=== PATIENT | male | born 1940 | race Caucasian/White ===

== ENCOUNTER 2016-12-01 16:42 | Inpatient (IN) ==
[2016-12-01] MEDS ORDERED: ACETAMINOPHEN 325 MG TABLET PO PRN (18:25)
[2016-12-01] MEDS ORDERED: LACTULOSE 20 GM/30 ML UDCUP PO PRN (18:25)
[2016-12-01] MEDS ORDERED: ALUMINUM/MAGNES/SIMETH MAX STR 30 ML UDCUP PO PRN (18:25)
[2016-12-01] MEDS ORDERED: MYLANTA/LIDO VISC 2:1 300 ML BOTTLE SWISH/SPIT PRN (18:25)
[2016-12-01] MEDS ORDERED: traMADol 50 MG TABLET PO PRN (18:25)
[2016-12-01] MEDS ORDERED: guaiFENesin 200 MG/10 ML UDCUP PO PRN (18:25)
[2016-12-01] MEDS ORDERED: chlorproMAZINE INJ 25 MG in SODIUM CHLORIDE 0.9% 100 ML IV PRN (18:25)
[2016-12-01] MEDS ORDERED: MAGNESIUM HYDROXIDE SUSP 30 ML UDCUP PO PRN (18:25)
[2016-12-01] MEDS ORDERED: diphenhydrAMINE CAP 25 MG CAPSULE PO PRN (18:25)
[2016-12-01] MEDS ORDERED: ALPRAZolam 0.25 MG TABLET PO PRN (18:25)
[2016-12-01] MEDS ORDERED: chlorproMAZINE 25 MG TABLET PO PRN (18:25)
[2016-12-01] MEDS ORDERED: MYLANTA/LIDO VISC 2:1 300 ML BOTTLE SWISH/SWAL PRN (18:25)
[2016-12-01] MEDS ORDERED: BENZTROPINE 2 MG/2 ML AMP IV PRN (18:25)
[2016-12-01] MEDS ORDERED: chlorproMAZINE INJ 50 MG in SODIUM CHLORIDE 0.9% 100 ML IV PRN (18:25)
[2016-12-01] MEDS ORDERED: LOPERAMIDE 2 MG CAPSULE PO PRN ×2 (18:25)
[2016-12-01 18:42] LABS: Basophils % 0.4 % (0.0-0.8); Eosinophils % 0.7 % (0.00-10.9); Hematocrit 35.5 VOL% (42.0-52.0); Hemoglobin 12.1 GM/DL (14.0-18.0); Immature Granulocytes % 0.4 %; Immature Granulocytes Absolute 0.02 #; Lymphocytes # 0.1 10*3/uL (1.4-4.0); Mean Corpuscular HGB Conc 34.1 GM/DL (32-36); Mean Corpuscular Hemoglobin 30 PG (27-34); Mean Platelet Volume 11.5 FL (9.6-12.0); Monocytes # 0.5 10*3/uL (0.11-0.8); Monocytes % 11.7 % (1.7-12.7); Neutrophils # 3.8 10*3/uL (1.4-7.4); Neutrophils % 84.8 % (38.7-73.9); Platelet Count 115 T/CUMM (130-400); Red Blood Count 3.99 MC/CUMM (3.8-5.5); Red Cell Distribution Width 16.2 % (9.3-17.3); White Blood Count 4.5 T/CUMM (4-12)
[2016-12-01] MEDS ORDERED: IBUPROFEN 800 MG TABLET PO ONE (18:42)
[2016-12-01] MEDS: SODIUM CHLORIDE 0.9% 1,000 ML IV SCH (18:42)
[2016-12-01] MEDS: ONDANSETRON 4 MG/2 ML VIAL IV PRN (19:03)
[2016-12-01 19:07] LABS: Albumin 3.2 G/DL (3.4-5.0); Bilirubin,Total 0.7 MG/DL (0.2-1.0); Magnesium 2.2 MG/DL (1.8-2.4); Potassium 3.7 MMOL/L (3.5-5.1); Total Protein 6.7 G/DL (6.4-8.3); Uric Acid 4.7 MG/DL (3.5-7.2)
[2016-12-01] MEDS ORDERED: LEVOFLOXACIN INJ 500 MG in PREMIX 1 EACH IV ONE (19:30)
[2016-12-01 20:04] LABS: Band Neutrophils 3 % (0-10); Eosinophils 2 % (0-10); Lymphocytes 4 % (20-55); Metamyelocytes 1 %; Segmented Neutrophils 88 % (50-85); Total Cells Counted 100
[2016-12-01 20:05] LABS: Platelet Estimate Adequate; Polychromasia Few
[2016-12-01] MEDS ORDERED: VANCOMYCIN INJ 1,000 MG in SODIUM CHLORIDE 0.9% 250 ML IV ONE (21:00)
[2016-12-01] MEDS: PROMETHAZINE INJ 25 MG in SODIUM CHLORIDE 0.9% 50 ML IV PRN (21:32)
[2016-12-02 05:30] LABS: Apearance,Urine Slightly Hazy (Clear); Bilirubin,Urine Negative (Negative); Blood, Urine Negative (Negative); Glucose,Urine (UA) Negative (Negative); Ketones,Urine Negative (Negative); Mucus,Urine Many /LPF (Occasional); Nitrite,Urine Negative (Negative); Protein,Urine Negative; RBC,Urine <1 /HPF (0-4); Squamous Epithelial Cell,Urine Occasional /HPF (0-10); Urine Color Yellow (Yellow); Urine Specific Gravity 1.015 (1.001-1.035); Urine Urobilinogen < 2.0 EU/DL (0.2-1.0); WBC,Urine 3 /HPF (0-6)
--- NOTE | 2016-12-02 07:41 | Oncology History&Physical ---
Assessment and Plan (1) FTT (failure to thrive) in adult Status: Acute Assessment and plan: We will continue IV fluids today. I will continue on with Levaquin only. Will follow up his blood cultures. Hopefully can discharge him home tomorrow if he is still doing well. I will recheck lab work in the morning as well. Current Visit: Yes (2) Lung cancer Status: Acute Current Visit: Yes (3) Bone metastasis Status: Acute Current Visit: Yes (4) Fever Status: Acute Current Visit: No (5) Weakness Status: Acute Current Visit: No History of Present Illness History of present illness: Mr. 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 His primary lesion is in his left upper lobe. He has he received chemotherapy for the last 3-4 months and is also gone radiation to the left femur along with the 3 other lesions. We are treating him aggressively since he appears to have oligo metastatic disease. He completed radiotherapy last week. I was going to give him a month off from any type of treatment since the radiation caused significant lethargy. He presented to the ER earlier this weekend complaining of fatigue and fevers. We placed him on antibiotics and let him go home. He called me last night complaining of worsening lethargy and also chills. I direct admitted to the floor for observation and treatment. His lab work on admission was normal. We gave him 1 dose of vancomycin and a dose of Levaquin. He was placed on IV fluids. This morning he states he feels much better. He has been afebrile since being in the hospital. He did have some chills at the time of admission but these resolved after he received a dose of ibuprofen. Home Medications Medication Instructions Recorded Confirmed Type Citalopram [CeleXA] 20 mg PO DAILY 01/03/15 12/01/16 History Magnesium Chloride [Mag Delay] 64 mg PO DAILY 01/03/15 12/01/16 History Meloxicam [Mobic] 15 mg PO DAILY 01/03/15 12/01/16 History Ascorbic Acid [Vitamin C] 1,000 mg PO DAILY 11/30/16 12/01/16 History Aspirin EC Tab 81 mg PO DAILY 11/30/16 12/01/16 History Cholecalciferol (Vitamin D3) 1,000 unit PO DAILY 11/30/16 12/01/16 History [Vitamin D3] Ciprofloxacin Tab [Cipro Tab] 500 mg PO BID #20 tablet 11/30/16 12/01/16 Rx Docusate Sodium [Stool Softener] 300 mg PO QPM 11/30/16 12/01/16 History Glucosamine/Chondroiti/Hrb#270 1 each PO DAILY 11/30/16 12/01/16 History [Cosamin Asu Capsule] Lactobacillus Combo No.6 1 each PO DAILY 11/30/16 12/01/16 History [Probiotic Complex] Ondansetron Tab [Zofran Tab] 4 mg PO Q6HR PRN 11/30/16 12/01/16 History Pantoprazole Tab [Protonix Tab] 40 mg PO BID 11/30/16 12/01/16 History Ranitidine Tab [Zantac Tab] 150 mg PO BEDTIME 11/30/16 12/01/16 History diphenhydrAMINE CAP [Benadryl Cap] 25 mg PO BEDTIME 11/30/16 12/01/16 History Allergies Allergy/AdvReac Type Severity Reaction Status Date / Time adhesive tape Allergy Redness of Verified 11/30/16 12:17 Skin Medical,Surgical,& Family Hx - Medical History Cardio: History of: CAD, PR (October) Psychological: History of: Anxiety Disorders, Depression Endocrine: History of: Dyslipidemia Respiratory: History of: Lung Cancer (NON SMALL CELL) Gastrointestinal: History of: GERD Musculoskeletal: History of: Back/Neck Problems - Surgical History Cardiac Surgeries: Sugical HX of: Cardiac Catheterization, Cardiac Surgery ( STENT X1) Abdominal Surgeries: Surgical HX of: Colonoscopy Orthopedic Surgeries: Surgical HX of;: Orthopedic Surgery (Titanium [place] in Left Leg) - Social History Smoking Status: Never smoker Frequency of Alcohol Use: None Type of Drug Use: None 12 point system: reviewed and no additional remarkable complaints except as stated - Constitutional Constitutional: Present: chills, fatigue, fever(s), night sweats, weakness - EENT Nose, mouth and throat: Present: odynophagia. Absent: epistaxis, neck mass - Cardiovascular Cardiovascular ROS IM: Absent: chest pain, orthopnea - Respiratory Respiratory: Absent: cough, hemoptysis - Gastrointestinal Gastrointestinal: Absent: heartburn, hematemesis Exam - Constitutional Vitals: Period Temp Pulse Resp BP Sys/Munguia Pulse Ox Last 24 Hr 97.9 F-98.5 F 66-75 18-20 98-140/54-84 93-98 General appearance: normal weight, no acute distress - Head Head Exam: Present: normocephalic, atraumatic - Eye Eye Exam: Present: EOMI Pupils: Present: PERRL - ENT ENT exam: Present: normal exam, normal oropharynx - Neck Neck exam: Present: thyromegaly. Absent: lymphadenopathy - Respiratory Respiratory exam: Present: CTAB. Absent: wheezes - Cardiovascular Cardiovascular exam: Present: RRR. Absent: irregular rhythm, JVD - GI/Abdominal GI/Abdominal exam: Present: soft. Absent: ascites, distended, firm, mass - Neurological Exam Neurological exam: Present: alert, oriented X3 - Psychiatric Psychiatric exam: Present: normal affect, normal mood - Skin Skin exam: Present: warm, dry Results - Labs CBC & BMP: 12/01/16 18:39 12/01/16 18:39 Lab Results: I have reviewed the past 24 hour labs
[2016-12-02] MEDS ORDERED: ONDANSETRON 4 MG TABLET PO PRN (07:44)
[2016-12-02] MEDS: CITALOPRAM 20 MG TABLET PO SCH (09:37)
[2016-12-02] MEDS: PANTOPRAZOLE 40 MG TABLET PO SCH ×2 (09:37→20:34)
[2016-12-02] MEDS: SODIUM CHLORIDE 0.9% 1,000 ML IV SCH ×2 (09:38→18:35)
[2016-12-02] MEDS: ONDANSETRON 4 MG/2 ML VIAL IV PRN (13:03)
[2016-12-02] MEDS ORDERED: IBUPROFEN 800 MG TABLET PO ONE (13:46)
[2016-12-02] MEDS ORDERED: IBUPROFEN 600 MG TABLET PO PRN (16:41)
[2016-12-02] MEDS: LEVOFLOXACIN INJ 500 MG in PREMIX 1 EACH IV SCH (18:34)
[2016-12-02] MEDS ORDERED: DOCUSATE SODIUM 100 MG CAPSULE PO SCH (19:00)
[2016-12-02] MEDS: PROMETHAZINE INJ 25 MG in SODIUM CHLORIDE 0.9% 50 ML IV PRN (19:39)
[2016-12-02] MEDS: diphenhydrAMINE CAP 25 MG CAPSULE PO SCH (20:34)
[2016-12-02] MEDS: FAMOTIDINE 20 MG TABLET PO SCH (20:34)
[2016-12-02] MEDS: DOCUSATE SODIUM 100 MG CAPSULE PO SCH (21:00)
[2016-12-03] MEDS: PROMETHAZINE INJ 25 MG in SODIUM CHLORIDE 0.9% 50 ML IV PRN (01:56)
[2016-12-03] MEDS: TEMAZEPAM 7.5 MG CAPSULE PO PRN (01:58)
[2016-12-03 06:00] LABS: Basophils % 0.4 % (0.0-0.8); Eosinophils # 0.1 10*3/uL (0.0-0.87); Eosinophils % 2.7 % (0.00-10.9); Hemoglobin 10.7 GM/DL (14.0-18.0); Immature Granulocytes % 0.8 %; Immature Granulocytes Absolute 0.02 #; Lymphocytes # 0.1 10*3/uL (1.4-4.0); Lymphocytes % 3.4 % (21.2-54.2); Mean Corpuscular HGB Conc 33.4 GM/DL (32-36); Mean Corpuscular Hemoglobin 30 PG (27-34); Mean Corpuscular Volume 88.9 FL (87-102); Monocytes # 0.5 10*3/uL (0.11-0.8); Monocytes % 17.5 % (1.7-12.7); Neutrophils % 75.2 % (38.7-73.9); Platelet Count 108 T/CUMM (130-400); Red Cell Distribution Width 16.3 % (9.3-17.3); White Blood Count 2.6 T/CUMM (4-12)
[2016-12-03 06:30] LABS: Band Neutrophils 3 % (0-10); Eosinophils 3 % (0-10); Lymphocytes 3 % (20-55); Platelet Estimate Decreased; Segmented Neutrophils 78 % (50-85); Total Cells Counted 100
[2016-12-03 06:31] LABS: Albumin 2.6 G/DL (3.4-5.0); Bilirubin,Total 0.5 MG/DL (0.2-1.0); Calcium 7.3 MG/DL (8.5-10.1); Hypochromasia 1+; Magnesium 2.3 MG/DL (1.8-2.4); Osmolality,Calculated 278.4 MOS/KG (273-304); Ovalocytes Slight; Potassium 3.6 MMOL/L (3.5-5.1); Total Protein 5.5 G/DL (6.4-8.3)
[2016-12-03] MEDS: SODIUM CHLORIDE 0.9% 1,000 ML IV SCH ×2 (06:44→20:15)
[2016-12-03] MEDS ORDERED: DEXAMETHASONE 10 MG/1 ML VIAL IV ONE (07:44)
[2016-12-03] MEDS ORDERED: FLUCONAZOLE INJ 200 MG in PREMIX 1 EACH IV ONE (07:45)
--- NOTE | 2016-12-03 07:48 | Oncology Progress Note ---
Assessment and Plan (1) Lung cancer Status: Acute Current Visit: Yes (2) Bone metastasis Status: Acute Current Visit: Yes (3) Fever Status: Acute Current Visit: No (4) Weakness Status: Acute Current Visit: No Oncology Subjective PN Interval history: Mr. Lobato is a 75-year-old white male with metastatic lung cancer who just recently completed SBRT to a T4, left hilar, and left upper lobe mass. He is admitted with fatigue and fevers. I think most of this is related to his recent radiation treatment the just completed last week. Mr. Lobato still feels weak and fatigued. He is still having occasional fever spikes. He also is having some nausea that is requiring Phenergan. His cultures have been no growth. There is no obvious evidence of infection. His Mediport looks good and he has no skin rashes. His oropharynx shows no signs of thrush. My initial plan was to discharge him home today given that he is still spiking fevers will at least watch him for 1 more [address] I will place him back on his home Mobic and given a dose of dexamethasone today. I also given 1 dose of Diflucan in case he has some underlying Alexa esophagitis. I will leave him on IV Levaquin for now since he is still having fevers even though I do not think there is any real underlying infection. We will continue with IV fluids since he is having poor p.o. intake. He is still attempting to ambulate in the halls 2-3 times a day. He states his biggest issue this morning is nausea. Exam - Constitutional Vitals: Period Temp Pulse Resp BP Sys/Munguia Pulse Ox Last 24 Hr 96.6 F-1007 F 57-85 19-22 96-141/56-91 74-98 General appearance: normal weight, no acute distress - Head Head Exam: Present: normocephalic, atraumatic - ENT ENT exam: Present: normal exam, normal oropharynx - Neck Neck exam: Absent: lymphadenopathy, thyromegaly - Respiratory Respiratory exam: Present: CTAB. Absent: wheezes - Cardiovascular Cardiovascular exam: Present: RRR. Absent: JVD, systolic murmur - GI/Abdominal GI/Abdominal exam: Present: soft. Absent: ascites, distended, mass - Neurological Exam Neurological exam: Present: alert, oriented X3 - Psychiatric Psychiatric exam: Present: normal affect, normal mood - Skin Skin exam: Present: warm, dry Results - Labs CBC & BMP: 12/03/16 04:00 12/03/16 04:00 Lab Results: I have reviewed the past 24 hour labs
[2016-12-03] MEDS: CITALOPRAM 20 MG TABLET PO SCH (09:54)
[2016-12-03] MEDS: MELOXICAM 7.5 MG TABLET PO SCH (09:54)
[2016-12-03] MEDS: PANTOPRAZOLE 40 MG TABLET PO SCH ×2 (09:55→20:17)
[2016-12-03] MEDS ORDERED: HEPARIN LOCK FLUSH 500 UNIT/5 ML SYRINGE IV ONE (10:57)
[2016-12-03] MEDS: LEVOFLOXACIN INJ 500 MG in PREMIX 1 EACH IV SCH (18:41)
[2016-12-03] MEDS: FAMOTIDINE 20 MG TABLET PO SCH (20:17)
[2016-12-03] MEDS: DOCUSATE SODIUM 100 MG CAPSULE PO SCH (20:19)
[2016-12-03] MEDS: diphenhydrAMINE CAP 25 MG CAPSULE PO SCH (21:19)
[2016-12-04] MEDS: ONDANSETRON 4 MG/2 ML VIAL IV PRN (04:06)
[2016-12-04] MEDS: SODIUM CHLORIDE 0.9% 1,000 ML IV SCH ×2 (05:55→17:16)
[2016-12-04] MEDS: PANTOPRAZOLE 40 MG TABLET PO SCH ×2 (08:09→20:06)
[2016-12-04] MEDS: CITALOPRAM 20 MG TABLET PO SCH (08:09)
[2016-12-04] MEDS: MELOXICAM 7.5 MG TABLET PO SCH (08:09)
--- NOTE | 2016-12-04 09:58 | Oncology Progress Note ---
Oncology Subjective PN Interval history: (1) Lung cancer Status: Acute He completed radiation therapy only a couple weeks ago and received his last course of chemotherapy about 10 days ago. (2) Bone metastasis Status: Acute he is currently having very little pain. (3) Fever Status: Acute afebrile since yesterday. Temp 97.9 today. (4) Weakness Status: Improving (5)leukopenia: Oncology Subjective PN Interval history: Mr. Lobato is a 75-year-old white male with metastatic lung cancer who just recently completed SBRT to a T4, left hilar, and left upper lobe mass. He is admitted with fatigue and fever. Blood cultures remain negative today. I think most of this is related to his recent radiation treatment the just completed last week. Mr. Lobato still feels weak and fatigued but he is getting stronger. He is afebrile today and has been afebrile for at least 24 hours. He is less nauseated today. The initial plan was to discharge him when his condition improved but his white cell count is dropping from the chemotherapy and I am concerned about it. I am going to check a CBC today and consider discharge tomorrow possibly. On physical examination he is chronically ill-appearing but in no acute distress. Eyes: Normal lids and conjunctivae. ENT: His oral mucosa and pharynx are normal. His hearing is normal. His trachea is midline. There is no neck tenderness and there are no masses. Lungs: His chest moves symmetrically with respiration. There is no chest wall tenderness. Breath sounds are coarse throughout with very few rhonchi that clear after a couple of deep breaths. Cardiovascular: His heart rhythm is regular without murmur, gallop or rub. There is no jugular venous distention, clubbing or cyanosis. Abdomen: I palpate no masses or organomegaly and there is no tenderness or ascites. Neurologic: Cranial nerves II through XII are intact. There are no focal neurologic deficits. Nodes: No submandibular, cervical, supraclavicular or axillary adenopathy. I am going to hold him at least until tomorrow to make sure that his blood counts do not drop further. I suspect he is going to develop progressive neutropenia and may not be a good candidate for discharge until his white cell count turns around. Exam - Constitutional Vitals: Period Temp Pulse Resp BP Sys/Munguia Pulse Ox Last 24 Hr 96.7 F-98.3 F 48-69 16-20 110-119/59-75 91-97 Results - Labs CBC & BMP: 12/04/16 11:25 12/03/16 04:00
[2016-12-04 11:33] LABS: Basophils % 0.2 % (0.0-0.8); Hematocrit 32.8 VOL% (42.0-52.0); Hemoglobin 11.4 GM/DL (14.0-18.0); Immature Granulocytes % 0.6 %; Immature Granulocytes Absolute 0.03 #; Lymphocytes # 0.2 10*3/uL (1.4-4.0); Lymphocytes % 3.9 % (21.2-54.2); Mean Corpuscular HGB Conc 34.8 GM/DL (32-36); Mean Corpuscular Hemoglobin 30 PG (27-34); Mean Corpuscular Volume 87.2 FL (87-102); Monocytes # 0.7 10*3/uL (0.11-0.8); Monocytes % 13.3 % (1.7-12.7); Platelet Count 122 T/CUMM (130-400); Red Blood Count 3.76 MC/CUMM (3.8-5.5); Red Cell Distribution Width 16.1 % (9.3-17.3); White Blood Count 4.9 T/CUMM (4-12)
[2016-12-04 11:55] LABS: Band Neutrophils 5 % (0-10); Lymphocytes 5 % (20-55); Microcytosis 1+; Ovalocytes Slight; Segmented Neutrophils 81 % (50-85); Total Cells Counted 100
--- NOTE | 2016-12-04 11:55 | Physician Query Form ---
CLICK EDIT DOCUMENT TO SELECT QUERY ANSWER --> OK --> SIGN Francine Fonseca RN [employer] W) [phone] (f) [phone] [email or web address] PROVIDERS: Make your selection(s) from the choices in EACH section by typing an "x" and enter comments in the comment section. Please use your independent medical judgment in providing your response. This request does not imply that any particular answer is desired or expected. CLINICAL INDICATORS: (Providers should not edit this section) Based on documentation of "I think most of this is related to his recent radiation treatment the just completed last week." WBC of 2.6, RBC of 3.60, PLT of 108. "suspect he is going to develop progressive neutropenia" Based on the above, could you clarify the appropriate diagnosis, if significant , that supports the above abnormalities and additional evaluation, monitoring, and/or treatment rendered: (x ) Chemotherapy Induced Pancytopenia ( ) NOT Chemotherapy Induced Pancytopenia ( ) Other, please specify: ( ) Clinically unable to determine COMMENTS: PLEASE ALSO DOCUMENT RESPONSE IN PROGRESS NOTES AND/OR DISCHARGE SUMMARY Use of terms such as suspected, likely, or probable (associated with a specific diagnosis that is being evaluated, monitored, or treated as if it exists) are acceptable and can be restated in the discharge summary if not ruled out. MTDD
[2016-12-04 11:56] LABS: Burr Cells Slight; Platelet Estimate Adequate
[2016-12-04 11:57] LABS: Hypochromasia Slight
[2016-12-04] MEDS: LEVOFLOXACIN INJ 500 MG in PREMIX 1 EACH IV SCH (18:32)
[2016-12-04] MEDS: FAMOTIDINE 20 MG TABLET PO SCH (20:06)
[2016-12-04] MEDS: DOCUSATE SODIUM 100 MG CAPSULE PO SCH (20:06)
[2016-12-04] MEDS: diphenhydrAMINE CAP 25 MG CAPSULE PO SCH (21:39)
[2016-12-04] MEDS: TEMAZEPAM 7.5 MG CAPSULE PO PRN (22:47)
[2016-12-05 04:24] LABS: Basophils % 0.3 % (0.0-0.8); Eosinophils # 0.1 10*3/uL (0.0-0.87); Eosinophils % 3.8 % (0.00-10.9); Hematocrit 31.3 VOL% (42.0-52.0); Hemoglobin 10.3 GM/DL (14.0-18.0); Immature Granulocytes % 0.3 %; Immature Granulocytes Absolute 0.01 #; Lymphocytes # 0.2 10*3/uL (1.4-4.0); Lymphocytes % 4.8 % (21.2-54.2); Mean Corpuscular HGB Conc 32.9 GM/DL (32-36); Mean Corpuscular Hemoglobin 30 PG (27-34); Mean Corpuscular Volume 89.9 FL (87-102); Mean Platelet Volume 10.9 FL (9.6-12.0); Monocytes # 0.4 10*3/uL (0.11-0.8); Monocytes % 10.5 % (1.7-12.7); Neutrophils % 80.3 % (38.7-73.9); Platelet Count 106 T/CUMM (130-400); Red Blood Count 3.48 MC/CUMM (3.8-5.5); Red Cell Distribution Width 16.2 % (9.3-17.3); White Blood Count 3.7 T/CUMM (4-12)
[2016-12-05] MEDS: SODIUM CHLORIDE 0.9% 1,000 ML IV SCH (04:58)
[2016-12-05 05:02] LABS: Albumin 2.4 G/DL (3.4-5.0); Bilirubin,Total 0.6 MG/DL (0.2-1.0); Calcium 6.7 MG/DL (8.5-10.1); Osmolality,Calculated 286.7 MOS/KG (273-304); Potassium 3.7 MMOL/L (3.5-5.1); Total Protein 5.2 G/DL (6.4-8.3)
[2016-12-05 06:42] LABS: Anisocytosis 1+; Band Neutrophils 2 % (0-10); Eosinophils 2 % (0-10); Lymphocytes 3 % (20-55); Myelocytes 1 %; Ovalocytes 1+; Platelet Estimate Adequate; Segmented Neutrophils 88 % (50-85); Total Cells Counted 100
[2016-12-05] MEDS: MELOXICAM 7.5 MG TABLET PO SCH (08:31)
[2016-12-05] MEDS: PANTOPRAZOLE 40 MG TABLET PO SCH (08:31)
[2016-12-05] MEDS: CITALOPRAM 20 MG TABLET PO SCH (08:32)
[2016-12-05 08:40] VITALS: BP 104/67
--- NOTE | 2016-12-05 09:47 | Oncology Progress Note ---
Oncology Subjective PN Interval history: Diagnoses: (1) Lung cancer Status: Acute He completed radiation therapy only a couple weeks ago and received his last course of chemotherapy about 10 days ago. (2) Bone metastasis Status: Acute he is currently having very little pain. (3) Fever Status: Acute He has been afebrile since yesterday. Temp 97.9 today. Afebrile again today. (4) Weakness Status: Improved significantly (5)leukopenia: BLOOD WORK TODAY INCLUDES A WHITE CELL COUNT OF 3700 WITH A HEMOGLOBIN OF 10.3 AND A PLATELET COUNT OF 106,000. aBSOLUTE NEUTROPHIL COUNT IS 3000. Mr. 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 His primary lesion is in his left upper lobe. He has he received chemotherapy for the last 3-4 months and is also gone radiation to the left femur along with the 3 other lesions. We are treating him aggressively since he appears to have oligo metastatic disease. He completed radiotherapy last week. Dr. Silva was going to give him a month off from any type of treatment since the radiation caused significant lethargy. He presented to the ER earlier this week complaining of fatigue and fever. He was placed on antibiotics and Dr. Silva let him go home. He called the night before this admission complaining of worsening lethargy and also chills. He was directly admitted to the floor for observation and treatment. His lab work on admission was normal. He received 1 dose of vancomycin and a dose of Levaquin. He was placed on IV fluids. The next morning he felt much better. He has been afebrile since being in the hospital. He did have some chills at the time of admission but these resolved after he received a dose of ibuprofen. I kept him until today because his white cell count was dropping but it has now rebounded. At this point I am discharging him and will instruct him to continue Cipro 500 mg p.o. twice daily. Exam - Constitutional Vitals: Period Temp Pulse Resp BP Sys/Munguia Pulse Ox Last 24 Hr 96.3 F-97.5 F 48-60 18-22 104-136/57-70 94-98 Results - Labs CBC & BMP: 12/05/16 04:00 12/05/16 04:00
--- NOTE | 2016-12-05 10:42 | Discharge Summary ---
Hospital Course - Hospital Course Hospital Course: Diagnoses: (1) Lung cancer Status: Acute He completed radiation therapy only a couple weeks ago and received his last course of chemotherapy about 10 days ago. (2) Bone metastasis Status: Acute he is currently having very little pain. (3) Fever Status: Acute He has been afebrile since yesterday. Temp 97.9 today. Afebrile again today. (4) Weakness Status: Improved significantly (5)leukopenia: BLOOD WORK TODAY INCLUDES A WHITE CELL COUNT OF 3700 WITH A HEMOGLOBIN OF 10.3 AND A PLATELET COUNT OF 106,000. aBSOLUTE NEUTROPHIL COUNT IS 3000. Mr. 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 His primary lesion is in his left upper lobe. He has he received chemotherapy for the last 3-4 months and is also gone radiation to the left femur along with the 3 other lesions. We are treating him aggressively since he appears to have oligo metastatic disease. He completed radiotherapy last week. Dr. Silva was going to give him a month off from any type of treatment since the radiation caused significant lethargy. He presented to the ER earlier this week complaining of fatigue and fever. He was placed on antibiotics and Dr. Silva let him go home. He called the night before this admission complaining of worsening lethargy and also chills. He was directly admitted to the floor for observation and treatment. His lab work on admission was normal. He received 1 dose of vancomycin and a dose of Levaquin. He was placed on IV fluids. The next morning he felt much better. He has been afebrile since being in the hospital. He did have some chills at the time of admission but these resolved after he received a dose of ibuprofen. I kept him until today because his white cell count was dropping but it has now rebounded. At this point I am discharging him and will instruct him to continue Cipro 500 mg p.o. twice daily. Discharge Plan - Discharge Data Disposition: Disch To Home/Self Care Condition at Discharge: Guarded Discharge Diet: advance to your usual diet Activity: resume usual activities as tolerated Hygiene: no restrictions Weight Bearing at Discharge: weight bear as tolerated Driving: other Contact your physician if you experience:: fever over 101, Difficulty voiding, Redness or swelling, Nausea/Vomiting, Shortness of breath, Bleeding, pain uncontrolled by pain medications - Discharge Medications Continue Magnesium Chloride [Mag Delay] 64 mg PO DAILY Meloxicam [Mobic] 15 mg PO DAILY Citalopram [CeleXA] 20 mg PO DAILY Docusate Sodium [Stool Softener] 300 mg PO QPM Ondansetron Tab [Zofran Tab] 4 mg PO Q6HR PRN PRN Reason: Nausea Glucosamine/Chondroiti/Hrb#270 [Cosamin Asu Capsule] 1 each PO DAILY Ascorbic Acid [Vitamin C] 1,000 mg PO DAILY Pantoprazole Tab [Protonix Tab] 40 mg PO BID Lactobacillus Combo No.6 [Probiotic Complex] 1 each PO DAILY Aspirin EC Tab 81 mg PO DAILY Ciprofloxacin Tab [Cipro Tab] 500 mg PO BID #20 tablet diphenhydrAMINE CAP [Benadryl Cap] 25 mg PO BEDTIME Ranitidine Tab [Zantac Tab] 150 mg PO BEDTIME Cholecalciferol (Vitamin D3) [Vitamin D3] 1,000 unit PO DAILY - Follow Up or Referral - Forms/Instructions Instructions: Shawn Antibiotic Awarness Additional Discharge Instructions: Keep your scheduled appointment to see Dr. Silva. Resume your previous home medications including the prescription for Cipro just prescribed by Dr. Silva. Exam - Constitutional Vitals: Period Temp Pulse Resp BP Sys/Munguia Pulse Ox Last 24 Hr 96.3 F-97.5 F 48-60 18-22 104-136/57-70 94-98 Discharge Results Procedures and tests throughout hospitalization: Pending Orders 12/01/16 18:40 Blood Culture Routine 12/01/16 19:12 Blood Culture Routine 12/06/16 04:00 Comp Blood Count Auto Diff IN AM LDH [Lactate Dehydrogenase] IN AM 12/07/16 04:00 Comp Blood Count Auto Diff IN AM LDH [Lactate Dehydrogenase] IN AM 12/08/16 04:00 Comp Blood Count Auto Diff IN AM LDH [Lactate Dehydrogenase] IN AM 12/09/16 04:00 Comp Blood Count Auto Diff IN AM LDH [Lactate Dehydrogenase] IN AM 12/10/16 04:00 Comp Blood Count Auto Diff IN AM Labs on day of discharge: Labs from last 24 hours 12/05/16 12/05/16 12/04/16 04:00 04:00 11:25 WBC 3.7 L 4.9 D RBC 3.48 L 3.76 L Hgb 10.3 L 11.4 L Hct 31.3 L 32.8 L MCV 89.9 87.2 MCH 30 30 MCHC 32.9 34.8 RDW 16.2 16.1 Plt Count 106 L 122 L MPV 10.9 11.0 Neut % (Auto) 80.3 H 82.0 H Lymph % (Auto) 4.8 L 3.9 L [place] % (Auto) 10.5 13.3 H Eos % (Auto) 3.8 0.0 Baso % (Auto) 0.3 0.2 Neut # (Auto) 3.0 4.0 Lymph # (Auto) 0.2 L 0.2 L [place] # (Auto) 0.4 0.7 Eos # (Auto) 0.1 0.0 Baso # (Auto) 0.0 0.0 Total Counted 100 100 Immature Gran % 0.3 0.6 Nucleated RBC % 0.0 0.0 Immature Gran # 0.01 0.03 Segmented Neutrophils 88 H 81 Band Neutrophils 2 5 Lymphocytes 3 L 5 L Monocytes 4 9 Eosinophils 2 Myelocytes 1 Nucleated RBCs # 0.00 0.00 Platelet Estimate Adequate Adequate Hypochromasia Slight Anisocytosis 1+ Microcytosis 1+ Ovalocytes 1+ Slight Eric Cells Slight Morphology Comment Sodium 145 Potassium 3.7 Chloride 112 H Carbon Dioxide 26 Anion Gap 10.7 BUN 12 Creatinine 0.60 L GFR Calculation 125 BUN/Creatinine Ratio 20.00 Glucose 84 Calculated Osmolality 286.7 Calcium 6.7 L Total Bilirubin 0.60 AST 21 ALT 28 Alkaline Phosphatase 32 L Lactate Dehydrogenase 180 Total Protein 5.2 L Albumin 2.4 L Globulin 2.8 Albumin/Globulin Ratio 0.8 L Preliminary micro results at discharge 12/01/16 19:12 Blood Culture - Preliminary Blood No growth at 3 days 12/01/16 18:40 Blood Culture - Preliminary Blood No growth at 3 days DS: Provider Date of admission: 12/03/16 08:29 Primary care physician: Chapincito Velasquez MD Attending physician on admission: Dontrell Silva MD Discharging clinician: En Gould MD
[2016-12-05] MEDS ORDERED: HEPARIN LOCK FLUSH 500 UNIT/5 ML SYRINGE IV ONE (11:21)
== END 2016-12-05 11:56 | disposition home or self-care (01) | DRG 864 ==
LOC: N.4E
PROVIDERS: ADMIT Specialist; ATTEND Specialist

== ENCOUNTER 2017-07-10 12:52 | Inpatient (IN) ==
[2017-07-10 15:01] LABS: Basophils % 0.3 % (0.0-0.8); Eosinophils # 0.2 10*3/uL (0.0-0.87); Eosinophils % 2.7 % (0.00-10.9); Hematocrit 44.7 VOL% (42.0-52.0); Hemoglobin 14.1 GM/DL (14.0-18.0); Immature Granulocytes % 0.3 %; Immature Granulocytes Absolute 0.02 #; Lymphocytes # 0.4 10*3/uL (1.4-4.0); Lymphocytes % 6.8 % (21.2-54.2); Mean Corpuscular HGB Conc 31.5 GM/DL (32-36); Mean Corpuscular Hemoglobin 27 PG (27-34); Mean Corpuscular Volume 86.8 FL (87-102); Monocytes # 0.5 10*3/uL (0.11-0.8); Monocytes % 8.1 % (1.7-12.7); Neutrophils # 4.8 10*3/uL (1.4-7.4); Neutrophils % 81.8 % (38.7-73.9); Platelet Count 153 T/CUMM (130-400); Red Blood Count 5.15 MC/CUMM (3.8-5.5); Red Cell Distribution Width 16.9 % (9.3-17.3); White Blood Count 5.9 T/CUMM (4-12)
[2017-07-10 15:10] LABS: PT Patient Result 10.1 SECS
[2017-07-10 15:26] LABS: Alanine Aminotransferase 26 U/L (16-61); Albumin 4.1 G/DL (3.4-5.0); Alkaline Phosphatase 47 U/L (45-117); Aspartate Amino Transferase 19 U/L (0-37); Blood Urea Nitrogen 17 MG/DL (7-18); Calcium 8.6 MG/DL (8.5-10.1); Glucose 90 MG/DL (74-106); Magnesium 2.4 MG/DL (1.8-2.4); Osmolality,Calculated 278.5 MOS/KG (273-304); Potassium 4.1 MMOL/L (3.5-5.1); Sodium 139 MMOL/L (136-145); Total Protein 7.4 G/DL (6.4-8.3); Troponin I Only < 0.015 NG/ML (0.00-0.045)
[2017-07-10] MEDS ORDERED: DEXAMETHASONE 10 MG/1 ML VIAL ONE (16:59)
[2017-07-10] MEDS ORDERED: DEXAMETHASONE 10 MG/1 ML VIAL IV SCH (17:00)
[2017-07-10] MEDS ORDERED: MYLANTA/LIDO VISC 2:1 300 ML BOTTLE SWISH/SWAL PRN (18:20)
[2017-07-10] MEDS ORDERED: traMADol 50 MG TABLET PO PRN (18:20)
[2017-07-10] MEDS ORDERED: LACTULOSE 20 GM/30 ML UDCUP PO PRN (18:20)
[2017-07-10] MEDS ORDERED: chlorproMAZINE 25 MG TABLET PO PRN (18:20)
[2017-07-10] MEDS ORDERED: MYLANTA/LIDO VISC 2:1 300 ML BOTTLE SWISH/SPIT PRN (18:20)
[2017-07-10] MEDS ORDERED: diphenhydrAMINE CAP 25 MG CAPSULE PO PRN ×2 (18:20→18:59)
[2017-07-10] MEDS ORDERED: MAGNESIUM HYDROXIDE SUSP 30 ML UDCUP PO PRN (18:20)
[2017-07-10] MEDS ORDERED: chlorproMAZINE INJ 25 MG in SODIUM CHLORIDE 0.9% 100 ML IV PRN (18:20)
[2017-07-10] MEDS ORDERED: ACETAMINOPHEN 325 MG TABLET PO PRN (18:20)
[2017-07-10] MEDS ORDERED: LOPERAMIDE 2 MG CAPSULE PO PRN ×2 (18:20)
[2017-07-10] MEDS ORDERED: guaiFENesin 200 MG/10 ML UDCUP PO PRN (18:20)
[2017-07-10] MEDS ORDERED: ALPRAZolam 0.25 MG TABLET PO PRN (18:20)
[2017-07-10] MEDS ORDERED: chlorproMAZINE INJ 50 MG in SODIUM CHLORIDE 0.9% 100 ML IV PRN (18:20)
[2017-07-10] MEDS ORDERED: ONDANSETRON 4 MG/2 ML VIAL IV PRN (18:20)
[2017-07-10] MEDS ORDERED: PROMETHAZINE INJ 25 MG in SODIUM CHLORIDE 0.9% 50 ML IV PRN (18:20)
[2017-07-10] MEDS ORDERED: BENZTROPINE 2 MG/2 ML AMP IV PRN (18:20)
[2017-07-10] MEDS ORDERED: ALUMINUM/MAGNES/SIMETH MAX STR 30 ML UDCUP PO PRN (18:20)
[2017-07-10] MEDS: CHOLECALCIFEROL 1,000 UNIT TABLET PO SCH (20:36)
[2017-07-10] MEDS: GLUCOSAMINE 500 MG TABLET PO SCH (20:36)
[2017-07-10] MEDS: MELOXICAM 7.5 MG TABLET PO SCH (20:36)
[2017-07-10] MEDS: TEMAZEPAM 7.5 MG CAPSULE PO PRN (20:36)
[2017-07-10] MEDS: OMEGA 3 ACID ETHYL ESTERS 1 GM CAPSULE PO SCH (20:37)
[2017-07-10] MEDS: MAGNESIUM CHLORIDE 64 MG TABLET PO SCH (20:37)
[2017-07-10] MEDS: ASPIRIN EC 81 MG TABLET PO SCH (20:37)
[2017-07-10] MEDS: CITALOPRAM 20 MG TABLET PO SCH (20:37)
[2017-07-10] MEDS: ASCORBIC ACID 500 MG TABLET PO SCH (20:37)
[2017-07-10] MEDS: DEXAMETHASONE 10 MG/1 ML VIAL IV SCH (20:37)
[2017-07-10 22:28] LABS: Apearance,Urine CLEAR (Clear); Bilirubin,Urine Negative (Negative); Blood, Urine Negative (Negative); Glucose,Urine (UA) Negative (Negative); Ketones,Urine Negative (Negative); Mucus,Urine Occasional /LPF (Occasional); Nitrite,Urine Negative (Negative); Protein,Urine Negative; RBC,Urine <1 /HPF (0-4); Squamous Epithelial Cell,Urine Occasional /HPF (0-10); Urine Color Yellow (Yellow); Urine Specific Gravity 1.016 (1.001-1.035); Urine Urobilinogen < 2.0 EU/DL (0.2-1.0); WBC,Urine 1 /HPF (0-6)
[2017-07-11] MEDS: DEXAMETHASONE 10 MG/1 ML VIAL IV SCH ×2 (08:34→21:14)
[2017-07-11] MEDS ORDERED: DEXAMETHASONE INJ 10 MG in SODIUM CHLORIDE 0.9% 50 ML IV SCH (09:00)
[2017-07-11] MEDS: MAGNESIUM CHLORIDE 64 MG TABLET PO SCH (17:30)
[2017-07-11] MEDS: CHOLECALCIFEROL 1,000 UNIT TABLET PO SCH (17:30)
[2017-07-11] MEDS: MELOXICAM 7.5 MG TABLET PO SCH (17:30)
[2017-07-11] MEDS: CITALOPRAM 20 MG TABLET PO SCH (17:30)
[2017-07-11] MEDS: GLUCOSAMINE 500 MG TABLET PO SCH (17:30)
[2017-07-11] MEDS: OMEGA 3 ACID ETHYL ESTERS 1 GM CAPSULE PO SCH (17:31)
[2017-07-11] MEDS: ASPIRIN EC 81 MG TABLET PO SCH (17:31)
[2017-07-11] MEDS: ASCORBIC ACID 500 MG TABLET PO SCH (17:31)
[2017-07-11] MEDS: TEMAZEPAM 7.5 MG CAPSULE PO PRN (21:13)
[2017-07-12 05:04] LABS: Basophils % 0.2 % (0.0-0.8); Hemoglobin 12.7 GM/DL (14.0-18.0); Immature Granulocytes % 0.8 %; Lymphocytes # 0.3 10*3/uL (1.4-4.0); Lymphocytes % 2.3 % (21.2-54.2); Mean Corpuscular HGB Conc 31.8 GM/DL (32-36); Mean Corpuscular Hemoglobin 28 PG (27-34); Mean Platelet Volume 11.4 FL (9.6-12.0); Monocytes # 0.3 10*3/uL (0.11-0.8); Monocytes % 2.3 % (1.7-12.7); Neutrophils # 12.5 10*3/uL (1.4-7.4); Neutrophils % 94.4 % (38.7-73.9); Platelet Count 148 T/CUMM (130-400); Red Cell Distribution Width 16.9 % (9.3-17.3); White Blood Count 13.2 T/CUMM (4-12)
[2017-07-12 05:51] LABS: Band Neutrophils 2 % (0-10); Giant Platelets Few; Hypochromasia 1+; Lymphocytes 2 % (20-55); Microcytosis Slight; Ovalocytes Slight; Platelet Estimate Normal; Segmented Neutrophils 94 % (50-85); Total Cells Counted 100
[2017-07-12] MEDS ORDERED: DEXAMETHASONE 4 MG TABLET PO SCH (09:00)
[2017-07-12 13:45] VITALS: BP 140/67
[2017-07-12] MEDS ORDERED: HEPARIN LOCK FLUSH 500 UNIT/5 ML SYRINGE IV ONE (15:31)
== END 2017-07-12 14:00 | disposition home or self-care (01) | DRG 55 ==
LOC: N.ED 12:52 → N.EDINP 16:43 → N.4E 18:32
PROVIDERS: ADMIT Specialist; ATTEND Specialist

== ENCOUNTER 2017-08-31 15:38 | Inpatient (IN) ==
[2017-08-31 16:35] LABS: Basophils % 0.4 % (0.0-0.8); Eosinophils % 0.4 % (0.00-10.9); Hematocrit 36.4 VOL% (42.0-52.0); Hemoglobin 12.7 GM/DL (14.0-18.0); Immature Granulocytes % 2.6 %; Immature Granulocytes Absolute 0.12 #; Lymphocytes # 0.1 10*3/uL (1.4-4.0); Lymphocytes % 2.8 % (21.2-54.2); Mean Corpuscular HGB Conc 34.9 GM/DL (32-36); Mean Corpuscular Hemoglobin 29 PG (27-34); Mean Corpuscular Volume 83.5 FL (87-102); Mean Platelet Volume 9.3 FL (9.6-12.0); Monocytes # 0.3 10*3/uL (0.11-0.8); Monocytes % 5.5 % (1.7-12.7); NRBC # 0.04 10*3/uL; Neutrophils # 4.2 10*3/uL (1.4-7.4); Neutrophils % 88.3 % (38.7-73.9); Platelet Count 108 T/CUMM (130-400); Red Blood Count 4.36 MC/CUMM (3.8-5.5); Red Cell Distribution Width 18.3 % (9.3-17.3); White Blood Count 4.7 T/CUMM (4-12)
[2017-08-31 16:50] LABS: PT Patient Result 10.1 SECS; Partial Thromboplastin Time 25.4 SECS (0-40)
[2017-08-31 16:55] LABS: Band Neutrophils 4 % (0-10); Giant Platelets Few; Hypochromasia 1+; Lymphocytes 3 % (20-55); Platelet Estimate Decreased; Segmented Neutrophils 90 % (50-85); Total Cells Counted 100
[2017-08-31 16:56] LABS: Microcytosis 1+
[2017-08-31 17:11] LABS: Lactic Acid 1.8 MMOL/L (0.4-2.0)
[2017-08-31 17:13] LABS: Alanine Aminotransferase 50 U/L (16-61); Albumin 2.7 G/DL (3.4-5.0); Alkaline Phosphatase 41 U/L (45-117); Aspartate Amino Transferase 28 U/L (0-37); Blood Urea Nitrogen 26 MG/DL (7-18); Calcium 8.2 MG/DL (8.5-10.1); Glucose 127 MG/DL (74-106); Osmolality,Calculated 276.1 MOS/KG (273-304); Potassium 3.6 MMOL/L (3.5-5.1); Sodium 135 MMOL/L (136-145); Total Protein 5.9 G/DL (6.4-8.3); Troponin I Only < 0.015 NG/ML (0.00-0.045)
[2017-08-31] MEDS ORDERED: AZITHROMYCIN INJ 500 MG in SODIUM CHLORIDE 0.9% 250 ML IV STA (17:39)
[2017-08-31] MEDS ORDERED: cefTRIAXone 250 MG VIAL IV STA (17:41)
[2017-08-31] MEDS ORDERED: cefTRIAXone 1,000 MG VIAL ONE (18:01)
[2017-08-31] MEDS ORDERED: diphenhydrAMINE CAP 25 MG CAPSULE PO PRN (19:51)
[2017-08-31] MEDS ORDERED: PROMETHAZINE INJ 25 MG in SODIUM CHLORIDE 0.9% 50 ML IV PRN (19:51)
[2017-08-31] MEDS ORDERED: LACTULOSE 20 GM/30 ML UDCUP PO PRN (19:51)
[2017-08-31] MEDS ORDERED: MYLANTA/LIDO VISC 2:1 300 ML BOTTLE SWISH/SPIT PRN (19:51)
[2017-08-31] MEDS ORDERED: chlorproMAZINE 25 MG TABLET PO PRN (19:51)
[2017-08-31] MEDS ORDERED: traMADol 50 MG TABLET PO PRN (19:51)
[2017-08-31] MEDS ORDERED: ALPRAZolam 0.25 MG TABLET PO PRN (19:51)
[2017-08-31] MEDS ORDERED: chlorproMAZINE INJ 25 MG in SODIUM CHLORIDE 0.9% 100 ML IV PRN (19:51)
[2017-08-31] MEDS ORDERED: ALUMINUM/MAGNES/SIMETH MAX STR 30 ML UDCUP PO PRN (19:51)
[2017-08-31] MEDS ORDERED: MAGNESIUM HYDROXIDE SUSP 30 ML UDCUP PO PRN (19:51)
[2017-08-31] MEDS ORDERED: LOPERAMIDE 2 MG CAPSULE PO PRN ×2 (19:51)
[2017-08-31] MEDS ORDERED: ONDANSETRON 4 MG/2 ML VIAL IV PRN (19:51)
[2017-08-31] MEDS ORDERED: guaiFENesin 200 MG/10 ML UDCUP PO PRN (19:51)
[2017-08-31] MEDS ORDERED: cefTRIAXone 250 MG VIAL IM STA (19:51)
[2017-08-31] MEDS ORDERED: TEMAZEPAM 7.5 MG CAPSULE PO PRN (19:51)
[2017-08-31] MEDS ORDERED: MYLANTA/LIDO VISC 2:1 300 ML BOTTLE SWISH/SWAL PRN (19:51)
[2017-08-31] MEDS ORDERED: BENZTROPINE 2 MG/2 ML AMP IV PRN (19:51)
[2017-08-31] MEDS ORDERED: ACETAMINOPHEN 325 MG TABLET PO PRN (19:51)
[2017-08-31] MEDS ORDERED: chlorproMAZINE INJ 50 MG in SODIUM CHLORIDE 0.9% 100 ML IV PRN (19:51)
[2017-08-31] MEDS: SODIUM CHLORIDE 0.9% 1,000 ML IV SCH (20:13)
[2017-08-31] MEDS ORDERED: AZITHROMYCIN INJ 500 MG in SODIUM CHLORIDE 0.9% 250 ML IV ONE (20:30)
[2017-08-31 20:55] LABS: Basophils % 0.2 % (0.0-0.8); Eosinophils % 0.2 % (0.00-10.9); Hematocrit 35.5 VOL% (42.0-52.0); Hemoglobin 11.8 GM/DL (14.0-18.0); Immature Granulocytes % 4.1 %; Immature Granulocytes Absolute 0.22 #; Lymphocytes # 0.2 10*3/uL (1.4-4.0); Lymphocytes % 2.8 % (21.2-54.2); Mean Corpuscular HGB Conc 33.2 GM/DL (32-36); Mean Corpuscular Hemoglobin 29 PG (27-34); Mean Corpuscular Volume 85.7 FL (87-102); Mean Platelet Volume 9.2 FL (9.6-12.0); Monocytes # 0.2 10*3/uL (0.11-0.8); Monocytes % 4.2 % (1.7-12.7); Neutrophils # 4.8 10*3/uL (1.4-7.4); Neutrophils % 88.5 % (38.7-73.9); Platelet Count 102 T/CUMM (130-400); Red Blood Count 4.14 MC/CUMM (3.8-5.5); White Blood Count 5.4 T/CUMM (4-12)
[2017-08-31 21:27] LABS: Band Neutrophils 8 % (0-10); Lymphocytes 6 % (20-55); Platelet Estimate Decreased; Segmented Neutrophils 83 % (50-85); Total Cells Counted 100
[2017-08-31 21:28] LABS: Albumin 2.6 G/DL (3.4-5.0); Bilirubin,Total 0.4 MG/DL (0.2-1.0); Calcium 7.7 MG/DL (8.5-10.1); Osmolality,Calculated 279.8 MOS/KG (273-304); Potassium 4.1 MMOL/L (3.5-5.1); Total Protein 5.5 G/DL (6.4-8.3)
[2017-09-01] MEDS: AZITHROMYCIN 250 MG TABLET PO SCH (09:38)
[2017-09-01] MEDS: cefTRIAXone 1,000 MG in SYRINGE 1 EACH IV SCH (09:39)
[2017-09-01] MEDS: SODIUM CHLORIDE 0.9% 1,000 ML IV SCH (10:57)
[2017-09-02 05:32] LABS: Basophils % 0.6 % (0.0-0.8); Hematocrit 33.4 VOL% (42.0-52.0); Hemoglobin 11.5 GM/DL (14.0-18.0); Immature Granulocytes % 4.9 %; Immature Granulocytes Absolute 0.24 #; Lymphocytes # 0.1 10*3/uL (1.4-4.0); Lymphocytes % 2.9 % (21.2-54.2); Mean Corpuscular HGB Conc 34.4 GM/DL (32-36); Mean Corpuscular Hemoglobin 29 PG (27-34); Mean Platelet Volume 10.1 FL (9.6-12.0); Monocytes # 0.2 10*3/uL (0.11-0.8); Monocytes % 3.5 % (1.7-12.7); NRBC # 0.02 10*3/uL; Neutrophils # 4.3 10*3/uL (1.4-7.4); Neutrophils % 88.1 % (38.7-73.9); Platelet Count 112 T/CUMM (130-400); Red Blood Count 3.93 MC/CUMM (3.8-5.5); White Blood Count 4.9 T/CUMM (4-12)
[2017-09-02 05:59] LABS: Band Neutrophils 2 % (0-10); Giant Platelets Few; Hypochromasia Slight; Lymphocytes 5 % (20-55); Microcytosis Slight; Platelet Estimate Decreased; Segmented Neutrophils 92 % (50-85); Total Cells Counted 100
[2017-09-02] MEDS: ALBUTEROL/IPRATROPIUM 3 ML NEB RESP TX SCH ×2 (08:20→19:03)
[2017-09-02] MEDS: cefTRIAXone 1,000 MG in SYRINGE 1 EACH IV SCH (09:57)
[2017-09-02] MEDS: AZITHROMYCIN 250 MG TABLET PO SCH (09:57)
[2017-09-02] MEDS: SODIUM CHLORIDE 0.9% 1,000 ML IV SCH (16:20)
[2017-09-03 05:48] LABS: Basophils % 0.4 % (0.0-0.8); Hematocrit 33.1 VOL% (42.0-52.0); Hemoglobin 11.2 GM/DL (14.0-18.0); Immature Granulocytes % 5.5 %; Immature Granulocytes Absolute 0.29 #; Lymphocytes # 0.2 10*3/uL (1.4-4.0); Lymphocytes % 3.4 % (21.2-54.2); Mean Corpuscular HGB Conc 33.8 GM/DL (32-36); Mean Corpuscular Hemoglobin 29 PG (27-34); Mean Corpuscular Volume 85.3 FL (87-102); Mean Platelet Volume 9.4 FL (9.6-12.0); Monocytes # 0.2 10*3/uL (0.11-0.8); Monocytes % 4.6 % (1.7-12.7); NRBC # 0.02 10*3/uL; Neutrophils # 4.5 10*3/uL (1.4-7.4); Neutrophils % 86.1 % (38.7-73.9); Platelet Count 111 T/CUMM (130-400); Red Blood Count 3.88 MC/CUMM (3.8-5.5); Red Cell Distribution Width 17.9 % (9.3-17.3); White Blood Count 5.2 T/CUMM (4-12)
[2017-09-03 06:08] LABS: Band Neutrophils 7 % (0-10); Lymphocytes 2 % (20-55); Metamyelocytes 2 %; Microcytosis 1+; Segmented Neutrophils 87 % (50-85); Total Cells Counted 100
[2017-09-03 06:09] LABS: Burr Cells Slight; Hypochromasia 1+; Ovalocytes Slight; Platelet Estimate Decreased; Polychromasia Slight
[2017-09-03] MEDS: ALBUTEROL/IPRATROPIUM 3 ML NEB RESP TX SCH (07:20)
[2017-09-03] MEDS: AZITHROMYCIN 250 MG TABLET PO SCH (09:01)
[2017-09-03] MEDS: cefTRIAXone 1,000 MG in SYRINGE 1 EACH IV SCH (09:01)
[2017-09-03 09:17] VITALS: BP 128/76
[2017-09-03] MEDS: SODIUM CHLORIDE 0.9% 1,000 ML IV SCH (10:38)
== END 2017-09-03 10:34 | disposition home or self-care (01) | DRG 194 ==
LOC: N.EDINP 15:38 → N.ED 15:38 → N.4E 19:23
PROVIDERS: ADMIT Specialist; ATTEND Specialist

== ENCOUNTER 2017-10-29 23:03 | Inpatient (IN) ==
[2017-10-30 01:31] LABS: Basophils % 0.1 % (0.0-0.8); Hemoglobin 11.5 GM/DL (14.0-18.0); Immature Granulocytes % 3.8 %; Immature Granulocytes Absolute 0.32 #; Lymphocytes # 0.2 10*3/uL (1.4-4.0); Lymphocytes % 1.8 % (21.2-54.2); Mean Corpuscular HGB Conc 33.8 GM/DL (32-36); Mean Corpuscular Hemoglobin 32 PG (27-34); Mean Corpuscular Volume 93.7 FL (87-102); Mean Platelet Volume 10.3 FL (9.6-12.0); Monocytes # 0.5 10*3/uL (0.11-0.8); Monocytes % 5.6 % (1.7-12.7); NRBC # 0.03 10*3/uL; Neutrophils # 7.6 10*3/uL (1.4-7.4); Neutrophils % 88.7 % (38.7-73.9); Platelet Count 102 T/CUMM (130-400); Red Blood Count 3.63 MC/CUMM (3.8-5.5); Red Cell Distribution Width 17.9 % (9.3-17.3); White Blood Count 8.5 T/CUMM (4-12)
[2017-10-30 01:42] LABS: PT Patient Result 10.2 SECS; Partial Thromboplastin Time 27.3 SECS (0-40)
[2017-10-30 01:55] LABS: Albumin 2.3 G/DL (3.4-5.0); Bilirubin,Total 0.9 MG/DL (0.2-1.0); Calcium 8.4 MG/DL (8.5-10.1); Osmolality,Calculated 282.5 MOS/KG (273-304); Potassium 3.9 MMOL/L (3.5-5.1)
[2017-10-30] MEDS ORDERED: ENOXAPARIN 120 MG/0.8 ML SYRINGE SUBCUT STA (02:09)
[2017-10-30 03:03] LABS: Apearance,Urine CLEAR (Clear); Bilirubin,Urine Negative (Negative); Blood, Urine Small mg/dL (Negative); Glucose,Urine (UA) 50 mg/dL (Negative); Granular Casts,Urine 6 /LPF (0-1); Ketones,Urine Negative (Negative); Mucus,Urine Occasional /LPF (Occasional); Nitrite,Urine Negative (Negative); Protein,Urine 30 MG/DL; Squamous Epithelial Cell,Urine Occasional /HPF (0-10); Urine Color Yellow (Yellow); Urine Specific Gravity 1.034 (1.001-1.035); WBC,Urine 1 /HPF (0-6)
[2017-10-30] MEDS ORDERED: ONDANSETRON 4 MG/2 ML VIAL IV PRN (03:42)
[2017-10-30 03:52] LABS: Band Neutrophils 6 % (0-10); Lymphocytes 4 % (20-55); Segmented Neutrophils 86 % (50-85)
[2017-10-30 03:53] LABS: Hypochromasia Slight; Microcytosis 2+; Polychromasia Few
[2017-10-30 03:54] LABS: Ovalocytes 2+
[2017-10-30 03:58] LABS: Platelet Estimate Adequate; Total Cells Counted 100
[2017-10-30] MEDS: SODIUM CHLORIDE 0.9% 1,000 ML IV SCH ×2 (05:29→18:00)
[2017-10-30 07:57] LABS: Basophils % 0.1 % (0.0-0.8); Hematocrit 33.7 VOL% (42.0-52.0); Hemoglobin 11.5 GM/DL (14.0-18.0); Immature Granulocytes % 5.3 %; Immature Granulocytes Absolute 0.45 #; Lymphocytes # 0.2 10*3/uL (1.4-4.0); Mean Corpuscular HGB Conc 34.1 GM/DL (32-36); Mean Corpuscular Hemoglobin 32 PG (27-34); Mean Corpuscular Volume 93.1 FL (87-102); Mean Platelet Volume 10.4 FL (9.6-12.0); Monocytes # 0.5 10*3/uL (0.11-0.8); Monocytes % 5.4 % (1.7-12.7); Neutrophils # 7.5 10*3/uL (1.4-7.4); Neutrophils % 87.2 % (38.7-73.9); Platelet Count 103 T/CUMM (130-400); Red Blood Count 3.62 MC/CUMM (3.8-5.5); Red Cell Distribution Width 17.6 % (9.3-17.3); White Blood Count 8.6 T/CUMM (4-12)
[2017-10-30 08:10] LABS: Albumin 2.4 G/DL (3.4-5.0); Bilirubin,Total 0.9 MG/DL (0.2-1.0); Calcium 8.6 MG/DL (8.5-10.1); Osmolality,Calculated 282.5 MOS/KG (273-304); Potassium 4.1 MMOL/L (3.5-5.1); Total Protein 5.9 G/DL (6.4-8.3)
[2017-10-30] MEDS: levETIRAcetam 500 MG TABLET PO SCH ×2 (08:42→20:06)
[2017-10-30] MEDS: DEXAMETHASONE 4 MG TABLET PO SCH ×2 (08:42→20:06)
[2017-10-30] MEDS: PANTOPRAZOLE 40 MG TABLET PO SCH (08:42)
[2017-10-30 11:26] LABS: Band Neutrophils 9 % (0-10); Hypochromasia 1+; Lymphocytes 2 % (20-55); Segmented Neutrophils 82 % (50-85); Total Cells Counted 100
[2017-10-30 11:27] LABS: Platelet Estimate Decreased
[2017-10-30] MEDS: ENOXAPARIN 100 MG/ML SYRINGE SUBCUT SCH (16:02)
[2017-10-30] MEDS: CITALOPRAM 20 MG TABLET PO SCH (18:21)
[2017-10-31] MEDS: ENOXAPARIN 100 MG/ML SYRINGE SUBCUT SCH ×2 (01:47→16:14)
[2017-10-31 05:51] LABS: Calcium 7.7 MG/DL (8.5-10.1); Osmolality,Calculated 279.7 MOS/KG (273-304); Potassium 3.9 MMOL/L (3.5-5.1)
[2017-10-31] MEDS: SODIUM CHLORIDE 0.9% 1,000 ML IV SCH ×2 (06:51→20:39)
[2017-10-31] MEDS ORDERED: TEMAZEPAM 15 MG CAPSULE PO PRN (07:33)
[2017-10-31 09:20] LABS: Hematocrit 30.7 VOL% (42.0-52.0); Hemoglobin 10.2 GM/DL (14.0-18.0); Immature Granulocytes % 2.7 %; Immature Granulocytes Absolute 0.19 #; Lymphocytes # 0.1 10*3/uL (1.4-4.0); Mean Corpuscular HGB Conc 33.2 GM/DL (32-36); Mean Corpuscular Hemoglobin 31 PG (27-34); Mean Corpuscular Volume 93.9 FL (87-102); Mean Platelet Volume 10.6 FL (9.6-12.0); Monocytes # 0.3 10*3/uL (0.11-0.8); Monocytes % 4.1 % (1.7-12.7); NRBC # 0.02 10*3/uL; Neutrophils # 6.4 10*3/uL (1.4-7.4); Neutrophils % 91.2 % (38.7-73.9); Platelet Count 99 T/CUMM (130-400); Red Blood Count 3.27 MC/CUMM (3.8-5.5); Red Cell Distribution Width 17.2 % (9.3-17.3); White Blood Count 7.1 T/CUMM (4-12)
[2017-10-31] MEDS: MEROPENEM 500 MG in SYRINGE 1 EACH IV SCH ×2 (09:43→17:18)
[2017-10-31] MEDS: PANTOPRAZOLE 40 MG TABLET PO SCH (09:43)
[2017-10-31] MEDS: levETIRAcetam 500 MG TABLET PO SCH ×2 (09:43→21:15)
[2017-10-31] MEDS: DEXAMETHASONE 4 MG TABLET PO SCH ×2 (09:43→21:15)
[2017-10-31] MEDS: MONTELUKAST 10 MG TABLET PO SCH (09:44)
[2017-10-31] MEDS: ALBUTEROL/IPRATROPIUM 3 ML NEB RESP TX SCH ×3 (11:22→20:10)
[2017-10-31] MEDS: DORNASE ALFA 2.5 MG/2.5 ML VIAL RESP TX SCH ×2 (11:22→20:10)
[2017-10-31 11:52] LABS: Band Neutrophils 2 % (0-10); Hypochromasia 1+; Platelet Estimate Decreased; Segmented Neutrophils 92 % (50-85); Total Cells Counted 100
[2017-10-31] MEDS: CITALOPRAM 20 MG TABLET PO SCH (17:17)
[2017-10-31] MEDS: ASPIRIN EC 81 MG TABLET PO SCH (17:17)
[2017-10-31] MEDS: APIXABAN 5 MG TABLET PO SCH (21:15)
[2017-11-01] MEDS: MEROPENEM 500 MG in SYRINGE 1 EACH IV SCH ×3 (01:29→18:20)
[2017-11-01] MEDS: ENOXAPARIN 100 MG/ML SYRINGE SUBCUT SCH (01:30)
[2017-11-01 05:08] LABS: Basophils % 0.2 % (0.0-0.8); Hematocrit 30.7 VOL% (42.0-52.0); Hemoglobin 9.9 GM/DL (14.0-18.0); Immature Granulocytes % 5.3 %; Immature Granulocytes Absolute 0.33 #; Lymphocytes # 0.1 10*3/uL (1.4-4.0); Lymphocytes % 2.1 % (21.2-54.2); Mean Corpuscular HGB Conc 32.2 GM/DL (32-36); Mean Corpuscular Hemoglobin 31 PG (27-34); Mean Corpuscular Volume 96.2 FL (87-102); Mean Platelet Volume 10.8 FL (9.6-12.0); Monocytes # 0.3 10*3/uL (0.11-0.8); Monocytes % 5.5 % (1.7-12.7); NRBC # 0.02 10*3/uL; Neutrophils # 5.4 10*3/uL (1.4-7.4); Neutrophils % 86.9 % (38.7-73.9); Red Blood Count 3.19 MC/CUMM (3.8-5.5); Red Cell Distribution Width 16.8 % (9.3-17.3); White Blood Count 6.2 T/CUMM (4-12)
[2017-11-01 05:09] LABS: Platelet Count 101 T/CUMM (130-400)
[2017-11-01 05:34] LABS: Band Neutrophils 5 % (0-10); Lymphocytes 2 % (20-55); Metamyelocytes 1 %; Microcytosis 1+; Nucleated Red Blood Cells 1 (0-5); Ovalocytes Few; Segmented Neutrophils 88 % (50-85); Total Cells Counted 100
[2017-11-01 05:35] LABS: Hypochromasia Slight; Platelet Estimate Decreased; Tear Drop Cells Slight
[2017-11-01] MEDS: ALBUTEROL/IPRATROPIUM 3 ML NEB RESP TX SCH ×4 (06:57→19:31)
[2017-11-01] MEDS: DORNASE ALFA 2.5 MG/2.5 ML VIAL RESP TX SCH ×2 (06:58→19:31)
[2017-11-01] MEDS: SODIUM CHLORIDE 0.9% 1,000 ML IV SCH ×2 (09:30→22:50)
[2017-11-01] MEDS: levETIRAcetam 500 MG TABLET PO SCH ×2 (09:31→20:35)
[2017-11-01] MEDS: PANTOPRAZOLE 40 MG TABLET PO SCH (09:31)
[2017-11-01] MEDS: MONTELUKAST 10 MG TABLET PO SCH (09:32)
[2017-11-01] MEDS: DEXAMETHASONE 4 MG TABLET PO SCH ×2 (09:33→20:34)
[2017-11-01] MEDS: APIXABAN 5 MG TABLET PO SCH (09:41)
[2017-11-01] MEDS: HEPARIN DRIP 25,000 UNITS/500 ML PREMIX IV SCH (11:03)
[2017-11-01] MEDS: CITALOPRAM 20 MG TABLET PO SCH (18:21)
[2017-11-01] MEDS: ASPIRIN EC 81 MG TABLET PO SCH (18:21)
[2017-11-02] MEDS: SODIUM CHLORIDE 0.9% 1,000 ML IV SCH ×2 (01:02→11:39)
[2017-11-02] MEDS: MEROPENEM 500 MG in SYRINGE 1 EACH IV SCH ×3 (01:35→18:14)
[2017-11-02 05:04] LABS: Basophils % 0.2 % (0.0-0.8); Hematocrit 30.1 VOL% (42.0-52.0); Hemoglobin 10.1 GM/DL (14.0-18.0); Immature Granulocytes % 6.3 %; Lymphocytes # 0.2 10*3/uL (1.4-4.0); Lymphocytes % 2.5 % (21.2-54.2); Mean Corpuscular HGB Conc 33.6 GM/DL (32-36); Mean Corpuscular Hemoglobin 32 PG (27-34); Mean Platelet Volume 10.4 FL (9.6-12.0); Monocytes # 0.4 10*3/uL (0.11-0.8); Monocytes % 5.5 % (1.7-12.7); NRBC # 0.05 10*3/uL; Neutrophils # 5.5 10*3/uL (1.4-7.4); Neutrophils % 85.5 % (38.7-73.9); Platelet Count 102 T/CUMM (130-400); Red Blood Count 3.17 MC/CUMM (3.8-5.5); Red Cell Distribution Width 16.8 % (9.3-17.3); White Blood Count 6.4 T/CUMM (4-12)
[2017-11-02 05:26] LABS: Giant Platelets Few; Hypochromasia 1+; Lymphocytes 4 % (20-55); Nucleated Red Blood Cells 1 (0-5); Platelet Estimate Decreased; Segmented Neutrophils 90 % (50-85); Total Cells Counted 100
[2017-11-02 05:27] LABS: Microcytosis Slight
[2017-11-02 05:31] LABS: Calcium 7.6 MG/DL (8.5-10.1); Osmolality,Calculated 282.4 MOS/KG (273-304); Potassium 4.4 MMOL/L (3.5-5.1)
[2017-11-02] MEDS: HEPARIN DRIP 25,000 UNITS/500 ML PREMIX IV SCH (06:04)
[2017-11-02] MEDS: ALBUTEROL/IPRATROPIUM 3 ML NEB RESP TX SCH ×4 (07:10→19:13)
[2017-11-02] MEDS: DORNASE ALFA 2.5 MG/2.5 ML VIAL RESP TX SCH ×2 (07:15→19:13)
[2017-11-02] MEDS: DEXAMETHASONE 4 MG TABLET PO SCH ×2 (10:47→20:44)
[2017-11-02] MEDS: levETIRAcetam 500 MG TABLET PO SCH ×2 (10:47→20:44)
[2017-11-02] MEDS: MONTELUKAST 10 MG TABLET PO SCH (10:47)
[2017-11-02] MEDS: PANTOPRAZOLE 40 MG TABLET PO SCH (10:48)
[2017-11-02] MEDS: APIXABAN 5 MG TABLET PO SCH ×2 (10:48→20:44)
[2017-11-02] MEDS: ASPIRIN EC 81 MG TABLET PO SCH (18:14)
[2017-11-02] MEDS: CITALOPRAM 20 MG TABLET PO SCH (18:14)
[2017-11-03] MEDS: SODIUM CHLORIDE 0.9% 1,000 ML IV SCH ×2 (01:30→20:38)
[2017-11-03] MEDS: MEROPENEM 500 MG in SYRINGE 1 EACH IV SCH ×3 (02:23→18:35)
[2017-11-03 05:42] LABS: Basophils % 0.2 % (0.0-0.8); Hematocrit 31.2 VOL% (42.0-52.0); Immature Granulocytes % 8.1 %; Immature Granulocytes Absolute 0.51 #; Lymphocytes # 0.1 10*3/uL (1.4-4.0); Lymphocytes % 2.1 % (21.2-54.2); Mean Corpuscular HGB Conc 32.1 GM/DL (32-36); Mean Corpuscular Hemoglobin 31 PG (27-34); Mean Corpuscular Volume 96.9 FL (87-102); Mean Platelet Volume 10.6 FL (9.6-12.0); Monocytes # 0.3 10*3/uL (0.11-0.8); Monocytes % 4.8 % (1.7-12.7); NRBC # 0.06 10*3/uL; Neutrophils # 5.3 10*3/uL (1.4-7.4); Neutrophils % 84.8 % (38.7-73.9); Platelet Count 107 T/CUMM (130-400); Red Blood Count 3.22 MC/CUMM (3.8-5.5); White Blood Count 6.3 T/CUMM (4-12)
[2017-11-03 06:07] LABS: Calcium 7.8 MG/DL (8.5-10.1); Osmolality,Calculated 279.5 MOS/KG (273-304); Potassium 4.2 MMOL/L (3.5-5.1)
[2017-11-03 06:29] LABS: Band Neutrophils 3 % (0-10); Hypochromasia 1+; Lymphocytes 2 % (20-55); Nucleated Red Blood Cells 1 (0-5); Ovalocytes Slight; Platelet Estimate Decreased; Segmented Neutrophils 89 % (50-85); Total Cells Counted 100
[2017-11-03 06:30] LABS: Microcytosis Slight
[2017-11-03] MEDS: ALBUTEROL/IPRATROPIUM 3 ML NEB RESP TX SCH ×4 (07:48→20:06)
[2017-11-03] MEDS: DORNASE ALFA 2.5 MG/2.5 ML VIAL RESP TX SCH ×2 (07:58→20:06)
[2017-11-03] MEDS: DEXAMETHASONE 4 MG TABLET PO SCH ×2 (09:38→20:10)
[2017-11-03] MEDS: APIXABAN 5 MG TABLET PO SCH ×2 (09:38→20:10)
[2017-11-03] MEDS: levETIRAcetam 500 MG TABLET PO SCH ×2 (09:39→20:10)
[2017-11-03] MEDS: MONTELUKAST 10 MG TABLET PO SCH (09:40)
[2017-11-03] MEDS: PANTOPRAZOLE 40 MG TABLET PO SCH (09:40)
[2017-11-03] MEDS: ASPIRIN EC 81 MG TABLET PO SCH (18:34)
[2017-11-03] MEDS: CITALOPRAM 20 MG TABLET PO SCH (18:34)
[2017-11-04] MEDS: MEROPENEM 500 MG in SYRINGE 1 EACH IV SCH ×3 (01:35→18:25)
[2017-11-04] MEDS: ALBUTEROL/IPRATROPIUM 3 ML NEB RESP TX SCH ×4 (07:35→19:57)
[2017-11-04] MEDS: DORNASE ALFA 2.5 MG/2.5 ML VIAL RESP TX SCH ×2 (07:41→19:57)
[2017-11-04] MEDS ORDERED: HEPARIN LOCK FLUSH 500 UNIT/5 ML SYRINGE IV PRN (09:27)
[2017-11-04] MEDS: APIXABAN 5 MG TABLET PO SCH ×2 (09:45→21:20)
[2017-11-04] MEDS: DEXAMETHASONE 4 MG TABLET PO SCH ×2 (09:45→21:20)
[2017-11-04] MEDS: levETIRAcetam 500 MG TABLET PO SCH ×2 (09:46→21:19)
[2017-11-04] MEDS: PANTOPRAZOLE 40 MG TABLET PO SCH (09:46)
[2017-11-04] MEDS: MONTELUKAST 10 MG TABLET PO SCH (09:47)
[2017-11-04] MEDS: CITALOPRAM 20 MG TABLET PO SCH (18:52)
[2017-11-04] MEDS: ASPIRIN EC 81 MG TABLET PO SCH (18:52)
[2017-11-05] MEDS: MEROPENEM 500 MG in SYRINGE 1 EACH IV SCH ×3 (01:30→16:47)
[2017-11-05] MEDS: DORNASE ALFA 2.5 MG/2.5 ML VIAL RESP TX SCH ×2 (07:44→19:28)
[2017-11-05] MEDS: ALBUTEROL/IPRATROPIUM 3 ML NEB RESP TX SCH ×4 (07:44→19:15)
[2017-11-05] MEDS: PANTOPRAZOLE 40 MG TABLET PO SCH (08:52)
[2017-11-05] MEDS: DEXAMETHASONE 4 MG TABLET PO SCH ×2 (08:52→20:54)
[2017-11-05] MEDS: levETIRAcetam 500 MG TABLET PO SCH ×2 (08:52→20:53)
[2017-11-05] MEDS: APIXABAN 5 MG TABLET PO SCH ×2 (08:52→20:54)
[2017-11-05] MEDS: MONTELUKAST 10 MG TABLET PO SCH (08:52)
[2017-11-05 11:56] LABS: Basophils % 0.2 % (0.0-0.8); Hematocrit 36.4 VOL% (42.0-52.0); Hemoglobin 11.9 GM/DL (14.0-18.0); Immature Granulocytes % 6.6 %; Immature Granulocytes Absolute 0.53 #; Lymphocytes # 0.2 10*3/uL (1.4-4.0); Lymphocytes % 2.2 % (21.2-54.2); Mean Corpuscular HGB Conc 32.7 GM/DL (32-36); Mean Corpuscular Hemoglobin 32 PG (27-34); Mean Corpuscular Volume 96.3 FL (87-102); Mean Platelet Volume 10.4 FL (9.6-12.0); Monocytes # 0.3 10*3/uL (0.11-0.8); Monocytes % 4.2 % (1.7-12.7); NRBC # 0.08 10*3/uL; Neutrophils # 6.9 10*3/uL (1.4-7.4); Neutrophils % 86.8 % (38.7-73.9); Platelet Count 124 T/CUMM (130-400); Red Blood Count 3.78 MC/CUMM (3.8-5.5); Red Cell Distribution Width 17.3 % (9.3-17.3)
[2017-11-05] MEDS: FLUCONAZOLE 100 MG TABLET PO SCH (12:54)
[2017-11-05 13:33] LABS: Hypochromasia 1+
[2017-11-05] MEDS: ASPIRIN EC 81 MG TABLET PO SCH (18:16)
[2017-11-05] MEDS: CITALOPRAM 20 MG TABLET PO SCH (18:16)
[2017-11-06] MEDS: MEROPENEM 500 MG in SYRINGE 1 EACH IV SCH ×3 (01:40→17:07)
[2017-11-06] MEDS: ALBUTEROL/IPRATROPIUM 3 ML NEB RESP TX SCH ×4 (07:52→20:26)
[2017-11-06] MEDS: DORNASE ALFA 2.5 MG/2.5 ML VIAL RESP TX SCH ×2 (07:52→20:26)
[2017-11-06] MEDS: APIXABAN 5 MG TABLET PO SCH ×2 (09:05→21:13)
[2017-11-06] MEDS: FLUCONAZOLE 100 MG TABLET PO SCH (09:05)
[2017-11-06] MEDS: MONTELUKAST 10 MG TABLET PO SCH (09:05)
[2017-11-06] MEDS: PANTOPRAZOLE 40 MG TABLET PO SCH (09:06)
[2017-11-06] MEDS: DEXAMETHASONE 4 MG TABLET PO SCH ×2 (09:06→21:13)
[2017-11-06] MEDS: levETIRAcetam 500 MG TABLET PO SCH ×2 (09:06→21:14)
[2017-11-06] MEDS: ASPIRIN EC 81 MG TABLET PO SCH (17:07)
[2017-11-06] MEDS: CITALOPRAM 20 MG TABLET PO SCH (17:07)
[2017-11-06] MEDS: TEMAZEPAM 15 MG CAPSULE PO PRN (22:02)
[2017-11-07] MEDS: MEROPENEM 500 MG in SYRINGE 1 EACH IV SCH ×3 (01:42→17:55)
[2017-11-07] MEDS: ALBUTEROL/IPRATROPIUM 3 ML NEB RESP TX SCH ×4 (07:55→19:26)
[2017-11-07] MEDS: DORNASE ALFA 2.5 MG/2.5 ML VIAL RESP TX SCH ×2 (08:00→19:26)
[2017-11-07] MEDS: PANTOPRAZOLE 40 MG TABLET PO SCH (08:41)
[2017-11-07] MEDS: levETIRAcetam 500 MG TABLET PO SCH ×2 (08:41→21:21)
[2017-11-07] MEDS: APIXABAN 5 MG TABLET PO SCH ×2 (08:41→21:21)
[2017-11-07] MEDS: FLUCONAZOLE 100 MG TABLET PO SCH (08:41)
[2017-11-07] MEDS: DEXAMETHASONE 4 MG TABLET PO SCH ×2 (08:41→21:22)
[2017-11-07] MEDS: MONTELUKAST 10 MG TABLET PO SCH (08:41)
[2017-11-07] MEDS: CITALOPRAM 20 MG TABLET PO SCH (17:56)
[2017-11-07] MEDS: ASPIRIN EC 81 MG TABLET PO SCH (17:56)
[2017-11-07] MEDS: TEMAZEPAM 15 MG CAPSULE PO PRN (21:22)
[2017-11-08] MEDS: MEROPENEM 500 MG in SYRINGE 1 EACH IV SCH ×2 (01:57→08:45)
[2017-11-08] MEDS: DORNASE ALFA 2.5 MG/2.5 ML VIAL RESP TX SCH (07:54)
[2017-11-08] MEDS: ALBUTEROL/IPRATROPIUM 3 ML NEB RESP TX SCH ×2 (07:54→12:17)
[2017-11-08] MEDS: levETIRAcetam 500 MG TABLET PO SCH (08:44)
[2017-11-08] MEDS: PANTOPRAZOLE 40 MG TABLET PO SCH (08:45)
[2017-11-08] MEDS: FLUCONAZOLE 100 MG TABLET PO SCH (08:45)
[2017-11-08] MEDS: APIXABAN 5 MG TABLET PO SCH (08:45)
[2017-11-08] MEDS: MONTELUKAST 10 MG TABLET PO SCH (08:45)
[2017-11-08] MEDS: DEXAMETHASONE 4 MG TABLET PO SCH (08:45)
[2017-11-08 11:50] VITALS: BP 117/70
== END 2017-11-08 14:42 | disposition swing bed (61) | DRG 167 ==
LOC: EDBD → EDUNIT# → N.ED 23:03 → SUATTDRO 10-30 03:42 → N.EDINP 10-30 03:42 → N.CC 10-30 04:43 → N.TELEN 11-04 12:29
PROVIDERS: ADMIT Family Medicine; ATTEND Internal Medicine